=== PATIENT | female | born 1980 | race Caucasian/White ===

== ENCOUNTER 2017-06-30 08:38 | Emergency (ER) | payer MEDICAID ==
[2017-06-30 08:43] VITALS: TEMP 98.5
--- NOTE | 2017-06-30 09:58 | ED PDOC ---
Lower Extremity Pain/Injury Time Seen by Provider: 06/30/17 09:08 Chief Complaint (Nursing): Lower Extremity Problem/Injury Additional Complaint(s): 37 y/o female presents to the emergency department with a complaint of right knee pain x5 days. States she was doing squats at the gym and told to hold the squat. Reports she was unable to and fell backwards and landed on her buttock causing her right knee to twist. Describes pain is worse with ambulation. Patient is requesting a doctors note to be excused from gym membership. Denies head trauma, loss of consciousness, headache, or chest pain. PMD: Dr. James Baca MD Past Medical History Reviewed: Historical Data, Nursing Documentation, Vital Signs Vital Signs: Last Vital Signs Temp 98.5 F 06/30/17 08:53 Pulse 76 06/30/17 08:53 Resp 16 06/30/17 08:53 BP 129/75 06/30/17 08:53 Pulse Ox 99 06/30/17 08:53 - Medical History PMH: Asthma, Back Problems (spinal stenosis), Hypercholesterolemia Denies: Chronic Kidney Disease - Surgical History Surgical History: Cholecystectomy, - Family History Family History: States: Unknown Family Hx - Social History Current smoker - smoking cessation education provided: No Alcohol: None Drugs: Denies - Home Medications Home Medications: Ambulatory Orders Medication Instructions Recorded Ibuprofen [Motrin] 600 mg PO Q8 PRN #6 tab 09/10/15 Cephalexin [cephalexin] 500 mg PO BID #20 cap 06/27/16 Cyclobenzaprine [Cyclobenzaprine 10 mg PO TID PRN #15 tab 07/01/16 HCl] Prednisone 50 mg PO DAILY #5 tablet 07/01/16 oxyCODONE/Acetaminophen [Percocet 1 ea PO Q6H PRN #12 tab 07/01/16 5/325 mg Tab] - Allergies Allergies/Adverse Reactions: Allergies Allergy/AdvReac Type Severity Reaction Status Date / Time codeine Allergy SWELLING Verified 06/30/17 08:52 Review of Systems ROS Statement: Except As Marked, All Systems Reviewed And Found Negative Constitutional: Negative for: Other (Head trauma or loss of consciousness) Cardiovascular: Negative for: Chest Pain Respiratory: Negative for: Cough Gastrointestinal: Negative for: Nausea, Vomiting, Abdominal Pain, Diarrhea Musculoskeletal: Positive for: Other (Right knee pain). Negative for: Neck Pain , Shoulder Pain, Foot Pain Neurological: Negative for: Weakness, Numbness, Incoordination, Headache Physical Exam - Reviewed Nursing Documentation Reviewed: Yes Vital Signs Reviewed: Yes - Physical Exam Appears: Positive for: Well, Non-toxic, No Acute Distress Head Exam: Positive for: ATRAUMATIC, NORMAL INSPECTION, NORMOCEPHALIC Skin: Positive for: Normal Color, Warm, Dry Extremity: Positive for: Normal ROM (Full with normal strength bilaterally. L knee: WNL), Other (R knee: negative anterior and drawer sign. No joint laxity but slight click palpated. Normal ROM and strength. Distal pulses intact. ). Negative for: Tenderness, Pedal Edema, Swelling Neurologic/Psych: Positive for: Alert, Oriented, Gait (normal) - ECG O2 Sat by Pulse Oximetry: 99 (RA) Pulse Ox Interpretation: Normal Medical Decision Making Medical Decision Making: Time: 09:22 Initial impression: Right knee pain. Rule out fracture Initial plan: --Toradol 60 mg IM --Right knee x-ray --Reevaluation Time: 10:04 --Knee Immobilizer Time: 10:14 Upon provider reevaluation patient is feeling better, is medically stable, and requires no further treatment in the ED at this time. Patient will be discharged home with instructions to take OTC Motrin for pain. Counseling was provided and all questions were answered regarding diagnosis and need for follow up with Dr. Madison Cox MD. There is agreement to discharge plan. Return if symptoms persist or worsen. Clinical Impression: Knee Pain Scribe Attestation: Documented by Sudha Britton, acting as a scribe for Em Womack MD. Provider Scribe Attestation: All medical record entries made by the Scribe were at my direction and personally dictated by me. I have reviewed the chart and agree that the record accurately reflects my personal performance of the history, physical exam, medical decision making, and the department course for this patient. I have also personally directed, reviewed, and agree with the discharge instructions and disposition. 10:13Am Knee X-ray (Right) FINDINGS: BONES: Normal. No fracture. JOINTS: Normal. No osteoarthritis. JOINT EFFUSION: Suspect tiny suprapatellar joint effusion OTHER FINDINGS: None. IMPRESSION: No evidence of acute displaced fracture nor dislocation. Suspect tiny suprapatellar joint effusion if symptoms persist or occult fracture suspected clinically, consider repeat radiographs 5-10 days as most fractures should become radiographically evident this timeframe. Patient placed in knee immobilizer. She was instructed to follow-up for outpatient MRI. Instructed no gym or sports until cleared by PMD Disposition - Clinical Impression Clinical Impression: Knee pain Counseled Patient/Family Regarding: Studies Performed, Diagnosis, Need For Followup - Disposition Referrals: Madison Cox MD [Staff Provider] - Disposition: Routine/Home Disposition Time: 10:14 Condition: GOOD Additional Instructions: Return to ED if condition worsens. Motrin for pain. Wear knee immobilizer. Follow-up with PMD/ortho within 1 week for MRI if persistent pain. Instructions: Knee Pain (ED) Forms: [facility] (Spanish), [facility] School/Work Excuse
--- NOTE | 2017-06-30 10:26 | RAD ---
PROCEDURE: Right Knee Radiographs. HISTORY: R knee pain COMPARISON: None. FINDINGS: BONES: Normal. No fracture. JOINTS: Normal. No osteoarthritis. JOINT EFFUSION: Suspect tiny suprapatellar joint effusion OTHER FINDINGS: None. IMPRESSION: No evidence of acute displaced fracture nor dislocation. Suspect tiny suprapatellar joint effusion if symptoms persist or occult fracture suspected clinically, consider repeat radiographs 5-10 days as most fractures should become radiographically evident this timeframe.
[2017-06-30 10:45] VITALS: BP 116/70; PULSE 74; RESP 18
[2017-06-30 10:50] VITALS: O2SAT 99
== END 2017-06-30 10:45 | disposition home or self-care (01) ==
LOC: H.ER 08:38
DX: M25.561 Pain in right knee (principal)
CPT/HCPCS: 29530; 73562; 96372; 99284; J1885

== ENCOUNTER 2018-10-14 16:31 | Emergency (ER) | payer MEDICAID ==
[2018-10-14 16:40] VITALS: TEMP 98.6
--- NOTE | 2018-10-14 17:22 | ED PDOC ---
HPI: Eye Injury/Pain Time Seen by Provider: 10/14/18 17:17 Chief Complaint (Nursing): Weakness/Neurological Deficit Chief Complaint (Provider): Headache Pain History Per: Patient History/Exam Limitations: no limitations Onset/Duration Of Symptoms: Days (>365) Current Symptoms Are (Timing): Still Present Injury To Eye?: No Severity: Mild Quality: Sharp Wears Contact Lens?: No Associated Symptoms: Pain (Pt presents to the ED indicating that she has had headache pain for close to two years. She indicates that she has seen specialist and desires assistance from the ED to tell her what is wrong ith her head. Pt sites advil as helping the pain but being allergic to toradol and motrin. ) Past Medical History Reviewed: Historical Data, Nursing Documentation, Vital Signs Vital Signs: Last Vital Signs Temp 98.6 F 10/14/18 16:35 Pulse 92 H 10/14/18 16:35 Resp 18 10/14/18 16:35 BP 126/88 10/14/18 16:35 Pulse Ox 99 10/14/18 16:35 - Medical History PMH: Asthma, Back Problems (spinal stenosis), Hypercholesterolemia, Migraine Denies: Chronic Kidney Disease - Surgical History Surgical History: Cholecystectomy, - Family History Family History: States: Unknown Family Hx - Home Medications Home Medications: Ambulatory Orders Medication Instructions Recorded Ibuprofen [Motrin] 600 mg PO Q8 PRN #6 tab 09/10/15 Cephalexin [cephalexin] 500 mg PO BID #20 cap 06/27/16 Cyclobenzaprine [Cyclobenzaprine 10 mg PO TID PRN #15 tab 07/01/16 HCl] Prednisone 50 mg PO DAILY #5 tablet 07/01/16 oxyCODONE/Acetaminophen [Percocet 1 ea PO Q6H PRN #12 tab 07/01/16 5/325 mg Tab] - Allergies Allergies/Adverse Reactions: Allergies Allergy/AdvReac Type Severity Reaction Status Date / Time codeine Allergy SWELLING Verified 06/30/17 08:52 Review of Systems ROS Statement: Except As Marked, All Systems Reviewed And Found Negative Neurological: Positive for: Headache. Negative for: Weakness, Numbness, Incoordination, Change in Speech, Confusion, Seizures, Altered Mental Status, Dizziness Physical Exam - Reviewed Nursing Documentation Reviewed: Yes Vital Signs Reviewed: Yes - Physical Exam Appears: Positive for: Well, Non-toxic Head Exam: Positive for: ATRAUMATIC, NORMAL INSPECTION, NORMOCEPHALIC Skin: Positive for: Normal Color, Warm, Dry Eye Exam: Positive for: Normal appearance, EOMI, PERRL. Negative for: Nystagmus, Periorbital swelling, Periorbital tenderness, Conjunctival injection, Scleral icterus ENT: Positive for: Normal ENT Inspection. Negative for: Sinus Pain/Drainage, Nasal Congestion, Pharyngeal Erythema, Tonsillar Exudate, Tonsillar Swelling Neck: Positive for: Normal, Painless ROM, Supple. Negative for: Decreased ROM Cardiovascular/Chest: Positive for: Regular Rate, Rhythm, Chest Non Tender. Negative for: Edema, Gallop, Murmur, Bradycardia, Tachycardia Respiratory: Positive for: Normal Breath Sounds. Negative for: Decreased Breath Sounds, Accessory Muscle Use, Crackles, Rales, Rhonchi, Stridor, Wheezing, Respiratory Distress Pulses-Carotid (L): 2+ Pulses-Carotid (R): 2+ Pulses-Radial (L): 2+ Pulses-Radial (R): 2+ Neurologic/Psych: Positive for: Alert, marbleizer II-XII, Oriented. Negative for: Motor/Sensory Deficits, Aphasia, Facial Droop - Laboratory Results Result Diagrams: 10/14/18 18:05 10/14/18 18:05 - ECG O2 Sat by Pulse Oximetry: 99 Medical Decision Making Medical Decision Making: Treated with migraine cocktail of reglan, benadryl and fluids; toradol avoided due to reported allergy; CT brain wholly negative and with no clinically significant results Disposition - Clinical Impression Clinical Impression: Head ache - Disposition Referrals: Eladio Simmons MD [Medical Doctor] - Disposition Time: 20:00 Condition: STABLE Instructions: Tension Headache, Migraine Headache (DC), Cluster Headache (DC), Headache, Adult (DC) Forms: [employer] (Samoan)
[2018-10-14] MEDS ORDERED: DiphenhydrAMINE 50 mg/ml Inj IVP STA (17:24)
[2018-10-14] MEDS ORDERED: Sodium Chloride 0.9% 1,000 ML IV SCH (17:30)
[2018-10-14 18:09] LABS: BASO # 0.1 K/uL (0.0-0.2); BASO % 0.7 % (0.0-2.0); EOS # 0.1 K/uL (0.0-0.7); EOS % 1.1 % (0.0-4.0); HEMOGLOBIN 12.5 g/dL (12.0-16.0); LYMPH # 1.6 K/uL (1.0-4.3); LYMPH % 19.9 % (20.0-40.0); MEAN CELL VOLUME 85.3 fl (81.0-99.0); MEAN CORPUSCULAR HEMOGLOBIN 27.5 pg (27.0-31.0); MEAN CORPUSCULAR HGB CONC 32.2 g/dL (33.0-37.0); MEAN PLATELET VOLUME 9.4 fl (7.2-11.7); MONO # 0.4 K/uL (0.0-0.8); MONO % 4.8 % (0.0-10.0); NEUT # 5.9 K/uL (1.8-7.0); NEUT % 73.5 % (50.0-75.0); RBC 4.55 Mil/uL (3.80-5.20)
[2018-10-14 18:10] LABS: SQUAMOUS EPITHIAL 2 /hpf (0-5); URINE BACTERIA OCC (<OCC); URINE BILIRUBIN NEGATIVE (NEGATIVE); URINE BLOOD MODERATE (NEGATIVE); URINE CLARITY CLOUDY (Clear); URINE COLOR AMBER (YELLOW); URINE GLUCOSE (UA) NEG (Normal); URINE HYALINE CAST 0-2 /hpf (0-2); URINE LEUKOCYTE ESTERASE TRACE Leu/uL (Negative); URINE PROTEIN 30 mg/dL (NEGATIVE); URINE UROBILINOGEN 0.2-1.0 mg/dL (0.2-1.0)
[2018-10-14 18:19] LABS: ALB/GLOB RATIO 1.2 (1.0-2.1); ALBUMIN 4.1 g/dL (3.5-5.0); ALT/SGPT 20 U/L (9-52); AST/SGOT 20 U/L (14-36); BLOOD UREA NITROGEN 8 mg/dl (7-17); CALCIUM 9.2 mg/dL (8.4-10.2); GFR NON-AFRICAN AMERICAN > 60
[2018-10-14 19:47] VITALS: BP 132/70; PULSE 88; RESP 17
[2018-10-14 19:53] VITALS: O2SAT 99
--- NOTE | 2018-10-15 09:17 | CT ---
Date of service: 10/14/2018 PROCEDURE: CT HEAD WITHOUT CONTRAST. HISTORY: persistent intractible head pain COMPARISON: None available. TECHNIQUE: Axial computed tomography images were obtained through the head/brain without intravenous contrast. Radiation dose: Total exam DLP = 776.15 mGy-cm. This CT exam was performed using one or more of the following dose reduction techniques: Automated exposure control, adjustment of the mA and/or kV according to patient size, and/or use of iterative reconstruction technique. FINDINGS: HEMORRHAGE: No intracranial hemorrhage. BRAIN: No mass effect or edema. No atrophy or chronic microvascular ischemic changes. VENTRICLES: Unremarkable. No hydrocephalus. CALVARIUM: Unremarkable. PARANASAL SINUSES: Unremarkable as visualized. No significant inflammatory changes. MASTOID AIR CELLS: Unremarkable as visualized. No inflammatory changes. OTHER FINDINGS: None. IMPRESSION: Normal CT of the Head. No intracranial mass, hemorrhage or evidence of acute infarct. The preliminary findings for this examination were reported by [facility] at 7:08 p.m. on 10/14/2018. There is concurrence of this report with the preliminary findings.
== END 2018-10-14 20:13 | disposition home or self-care (01) ==
LOC: H.ER 16:31
DX: R51 Headache (principal); E78.00 Pure hypercholesterolemia, unspecified
CPT/HCPCS: 70450; 80053; 81003; 81025; 85025; 96361; 96374; 96375; 99285; J1200; J2765; J7030